=== PATIENT | female | born 1955 ===

== ENCOUNTER 2023-05-24 09:02 | Outpatient (CLI) | payer OTHER | END 2023-05-24 09:10 | disposition home or self-care (01) | LOC: TOM 09:02 | PROVIDERS: ATTEND Internal Medicine Gastroenterology | DX: R10.13 Epigastric pain (principal) | CPT/HCPCS: 74177; Q9965 ==

== ENCOUNTER 2023-05-24 09:34 | Outpatient (CLI) | payer OTHER ==
[2023-05-24 10:44] LABS: CREATININE SERUM 0.75 mg/dL (0.55-1.02)
== END 2023-05-24 09:39 | disposition home or self-care (01) ==
LOC: LAB 09:34
PROVIDERS: ATTEND Radiology Diagnostic Radiology
DX: R10.13 Epigastric pain (principal); R63.4 Abnormal weight loss